=== PATIENT | female | born 1980 | race Caucasian/White ===

== ENCOUNTER → 2022-08-18 10:47 | Outpatient (CLI) | payer MEDICARE, MEDICAID, SELFPAY ==
--- NOTE | 2022-08-18 10:53 | XR_ITS ---
FINAL REPORT CLINICAL HISTORY: Cervicogenic headaches FINDINGS: SPINE CERVICAL COMPLETE/FLEXION & EXT AP, lateral, oblique, and flexion and extension views were obtained. No fracture is identified. There is mild reversal of the cervical lordosis. The disc spaces are preserved. Alignment is normal. There is no instability with flexion or extension. IMPRESSION: No acute process. Reviewed, Interpreted and Dictated by Robby Hutchison MD Transcribed by Law Dugan Authenticated and [facility]
== END ==
PROVIDERS: PCP Family Medicine; Visit Provider Nurse Practitioner Family
DX: G43.709 Chronic migraine without aura, not intractable, without status migrainosus (principal); G43.829 Menstrual migraine, not intractable, without status migrainosus; G44.86 Cervicogenic headache; R63.6 Underweight; Z72.0 Tobacco use
CPT/HCPCS: 72052; 94762